=== PATIENT | male | born 1960 | race Caucasian/White ===

== ENCOUNTER 2018-05-06 17:17 | Inpatient (IN) | payer SELFPAY ==
[~2018-05-06] VITALS: Ht 182.9 cm; Wt 111.2 kg
[2018-05-06] MEDS ORDERED: hydrALAzine 20 MG/ML, 1ML ONE (17:47)
[2018-05-06] MEDS ORDERED: hydrALAzine 20 MG/ML, 1ML IV ONE (18:00)
[2018-05-06] MEDS ORDERED: SODIUM CHLORIDE FLUSH 10ML SYR IVF ONE (18:00)
[2018-05-06 18:11] LABS: BASOPHILS # (AUTO) 0.04 x10^3/uL (0-0.1); BASOPHILS % (AUTO) 1 % (0-1); EOSINOPHILS # (AUTO) 0.09 x10^3/uL (0-0.4); EOSINOPHILS % (AUTO) 1 % (1-7); LYMPHOCYTES # (AUTO) 1.19 x10^3/uL (1-3.4); LYMPHOCYTES % (AUTO) 18 % (22-44); MD NO; MEAN CORPUSCULAR HEMOGLOBIN 31.5 pg (27.5-34.5); MEAN CORPUSCULAR HGB CONC 34.6 g/dL (33.2-36.2); MEAN CORPUSCULAR VOLUME 91.2 fL (81-97); MEAN PLATELET VOLUME 7.6 fL (7.4-10.4); MONOCYTES # (AUTO) 0.61 x10^3/uL (0.2-0.8); MONOCYTES % (AUTO) 9 % (2-9); NEUTROPHILS # (AUTO) 4.71 x10^3/uL (1.8-6.8); NEUTROPHILS % (AUTO) 71 % (42-75); PLATELET COUNT 249 x10^3/uL (130-400); RED BLOOD COUNT 5.29 x10^6/uL (4.38-5.82); RED CELL DISTRIBUTION WIDTH 12.8 % (9.4-14.8)
[2018-05-06 18:20] LABS: ALANINE AMINOTRANSFERASE 79 U/L (12-78); ALBUMIN 4.2 g/dL (3.4-5.0); ANION GAP 8 mmol/L (5-15); CALCIUM 9.1 mg/dL (8.5-10.1); CHLORIDE 103 mmol/L (98-107); CREATININE 0.99 mg/dL (0.7-1.3)
[2018-05-06 18:25] LABS: ALKALINE PHOSPHATASE 82 U/L (45-117); BILIRUBIN,TOTAL 0.5 mg/dL (0.2-1.0); TOTAL PROTEIN 8.2 g/dL (6.4-8.2); TROPONIN I < 0.015 ng/mL (0.000-0.045)
--- NOTE | 2018-05-06 18:45 | NUR ---
PT'S BLOOD PRESSURE STILL ELEVATED. DR. LEARY NOTIFIED
--- NOTE | 2018-05-06 19:10 | NUR ---
PT MEDICATED PER EMAR
--- NOTE | 2018-05-06 19:53 | NUR ---
[facility] STATED TO CALL THEM TO [facility] PT WHEN HE IS DISCHARGED. CASE # [id number]
[2018-05-06] MEDS ORDERED: SODIUM CHLORIDE FLUSH 10ML SYR IVF PRN (20:00)
--- NOTE | 2018-05-06 20:34 | NUR ---
report given to serenity foreman
--- NOTE | 2018-05-06 20:53 | NUR ---
RECEIVED REPORT FROM ASPEN BASSETT
--- NOTE | 2018-05-06 21:20 | NUR ---
PT REPORTING FORD 09/23, STILL HTN. UPDATED, ORDERS RECEIVED. PHARM CALLED FOR MEDS. WILL CONTINUE TO MONITOR. PT LUL [phone], UPDATED ON PT STATUS WITH PT PERMISSION. WILL CONTINUE TO MONITOR
--- NOTE | 2018-05-06 21:29 | NUR ---
HOSPITALIST TO BEDSIDE FOR ASSESSMENT AND ADMIT
[2018-05-06] MEDS ORDERED: hydrALAzine 20 MG/ML, 1ML IVPush PRN (21:30)
[2018-05-06] MEDS ORDERED: ASA/APAP/ CAFFEINE TABLET PO PRN (21:30)
[2018-05-06] MEDS ORDERED: ONDANSETRON ODT 4 MG PO PRN (21:30)
[2018-05-06] MEDS ORDERED: HYDROcodone/APAP 5/325 TABLET PO PRN (21:30)
[2018-05-06] MEDS ORDERED: POLYETHYLENE GLYCOL 17 GM PACKET PO PRN (21:30)
[2018-05-06] MEDS ORDERED: BISACODYL 10 MG SUPP PR PRN (21:30)
[2018-05-06] MEDS ORDERED: PROMETHAZINE 25 MG/ML, 1ML IM PRN (21:30)
[2018-05-06] MEDS ORDERED: ONDANSETRON 2MG/ML, 2ML IVPush PRN (21:30)
[2018-05-06] MEDS ORDERED: morphine SULFATE 10 MG/ML, 1ML IVPush PRN (21:30)
[2018-05-06] MEDS ORDERED: LABETALOL 5MG/ML, 20ML IVPush ONE (21:30)
--- NOTE | 2018-05-06 21:43 | NUR ---
PT MEDICATED PER MAR FOR HTN AND FORD PAIN. PT NOW READY FOR TRANSPORT TO FLOOR
[2018-05-06 21:55] VITALS: BP 202/110
[2018-05-06 22:16] LABS: HEMOGLOBIN A1C 5.4 % (4.2-6.3)
[2018-05-06 22:17] LABS: FREE T4 (FREE THYROXINE) 0.89 ng/dL (0.76-1.46); THYROID STIMULATING HORMONE 1.55 mIU/L (0.358-3.740)
[2018-05-06] MEDS: LISINOPRIL 20 MG TABLET PO SCH (22:39)
[2018-05-06] MEDS: HYDROCHLOROTHIAZIDE 12.5 MG CAPSULE PO SCH (22:39)
[2018-05-06 22:53] LABS: MICROSCOPIC NOT IND
[2018-05-06 22:55] LABS: CULTURE INDICATED? NO
[2018-05-06 23:50] VITALS: BP 195/104
[2018-05-06] MEDS: ENALAPRILAT 1.25 MG/ML, 2ML IVPush PRN (23:54)
[2018-05-07] VITALS (11 sets, daily range): BP systolic 146–212; BP diastolic 89–116
[2018-05-07] MEDS: ENALAPRILAT 1.25 MG/ML, 2ML IVPush PRN ×2 (00:18→16:41)
[2018-05-07 05:21] LABS: BASOPHILS # (AUTO) 0.03 x10^3/uL (0-0.1); BASOPHILS % (AUTO) 0 % (0-1); EOSINOPHILS # (AUTO) 0.12 x10^3/uL (0-0.4); EOSINOPHILS % (AUTO) 2 % (1-7); LYMPHOCYTES # (AUTO) 1.66 x10^3/uL (1-3.4); LYMPHOCYTES % (AUTO) 23 % (22-44); MD NO; MEAN CORPUSCULAR HEMOGLOBIN 31.2 pg (27.5-34.5); MEAN CORPUSCULAR HGB CONC 34.4 g/dL (33.2-36.2); MEAN CORPUSCULAR VOLUME 90.8 fL (81-97); MEAN PLATELET VOLUME 7.6 fL (7.4-10.4); MONOCYTES # (AUTO) 0.89 x10^3/uL (0.2-0.8); MONOCYTES % (AUTO) 13 % (2-9); NEUTROPHILS # (AUTO) 4.44 x10^3/uL (1.8-6.8); NEUTROPHILS % (AUTO) 62 % (42-75); PLATELET COUNT 236 x10^3/uL (130-400); RED BLOOD COUNT 5.13 x10^6/uL (4.38-5.82); RED CELL DISTRIBUTION WIDTH 12.6 % (9.4-14.8)
[2018-05-07 05:29] LABS: ALBUMIN 3.9 g/dL (3.4-5.0); CALCIUM 8.8 mg/dL (8.5-10.1); CHLORIDE 108 mmol/L (98-107)
[2018-05-07 05:33] LABS: ALANINE AMINOTRANSFERASE 65 U/L (12-78); ALKALINE PHOSPHATASE 67 U/L (45-117); ANION GAP 7 mmol/L (5-15); BILIRUBIN,TOTAL 0.9 mg/dL (0.2-1.0); CHOL/HDL RATIO 3.9; CHOLESTEROL, TOTAL 145 mg/dL (140-239); HDL CHOL % 26 % (26-37); HDL CHOLESTEROL (DIRECT) 37 mg/dL (40-60); LDL CHOLESTEROL,CALCULATED 77 mg/dL (54-169); LDL/HDL RATIO 2.1 (0.5-3.0); TOTAL PROTEIN 7.6 g/dL (6.4-8.2); TRIGLYCERIDES 153 mg/dL (50-200); VLDL CHOLESTEROL 31 mg/dL (0-25)
[2018-05-07] MEDS: HYDROCHLOROTHIAZIDE 12.5 MG CAPSULE PO SCH (07:53)
[2018-05-07] MEDS: ACETAMINOPHEN 325 MG TABLET PO PRN ×2 (07:53→19:49)
[2018-05-07] MEDS: LISINOPRIL 20 MG TABLET PO SCH (07:54)
[2018-05-07] MEDS: LABETALOL 5 MG/ML SYRINGE IVPush PRN (19:42)
[2018-05-08 00:54] VITALS: BP 163/88
[2018-05-08 07:05] VITALS: BP 212/112
[2018-05-08] MEDS: LISINOPRIL 20 MG TABLET PO SCH (07:53)
[2018-05-08] MEDS: HYDROCHLOROTHIAZIDE 12.5 MG CAPSULE PO SCH (07:53)
[2018-05-08] MEDS: ACETAMINOPHEN 325 MG TABLET PO PRN (07:57)
[2018-05-08] MEDS ORDERED: LISINOPRIL 20 MG TABLET ONE (09:10)
[2018-05-08] MEDS ORDERED: LISINOPRIL 20 MG TABLET PO ONE (09:30)
[2018-05-08] MEDS: AMLODIPINE 5 MG TABLET PO SCH (09:58)
[2018-05-08 12:04] VITALS: BP 225/99
[2018-05-08 13:11] VITALS: BP 217/99
[2018-05-08] MEDS ORDERED: KETOROLAC 30 MG/1 ML IVPush SCH (13:30)
[2018-05-08] MEDS ORDERED: METOCLOPRAMIDE 5 MG/ML, 2ML IVPush ONE (13:30)
[2018-05-08] MEDS ORDERED: DIPHENHYDRAMINE 50 MG/ML, 1ML IVPush ONE (13:30)
[2018-05-08] MEDS: ENALAPRILAT 1.25 MG/ML, 2ML IVPush PRN ×2 (13:31→21:04)
[2018-05-08 15:29] VITALS: BP 160/87
[2018-05-08 21:02] VITALS: BP 174/95
[2018-05-09 02:38] VITALS: BP 157/80
[2018-05-09 07:40] VITALS: BP 206/127
[2018-05-09] MEDS: HYDROCHLOROTHIAZIDE 12.5 MG CAPSULE PO SCH (08:48)
[2018-05-09] MEDS: LISINOPRIL 20 MG TABLET PO SCH (08:49)
[2018-05-09] MEDS: AMLODIPINE 5 MG TABLET PO SCH (08:49)
[2018-05-09] MEDS ORDERED: AMLODIPINE 5 MG TABLET PO STA (09:21)
[2018-05-09 13:38] VITALS: BP 208/93
[2018-05-09] MEDS: ACETAMINOPHEN 325 MG TABLET PO PRN (13:56)
[2018-05-09] MEDS: ENALAPRILAT 1.25 MG/ML, 2ML IVPush PRN (14:08)
[2018-05-09] MEDS: LABETALOL 5 MG/ML SYRINGE IVPush PRN (16:01)
[2018-05-09 18:24] VITALS: BP 211/105
[2018-05-09 20:07] VITALS: BP 209/112
[2018-05-09] MEDS: AMLODIPINE 10 MG TAB PO SCH (20:10)
[2018-05-09 21:10] VITALS: BP 168/98
[2018-05-10] VITALS (7 sets, daily range): BP systolic 148–208; BP diastolic 65–158
[2018-05-10] MEDS ORDERED: AMLODIPINE 10 MG TAB PO SCH (09:00)
[2018-05-10] MEDS: AMLODIPINE 10 MG TAB PO SCH ×2 (09:00→21:16)
[2018-05-10] MEDS: LISINOPRIL 20 MG TABLET PO SCH (09:01)
[2018-05-10] MEDS: HYDROCHLOROTHIAZIDE 25 MG TABLET PO SCH (09:07)
[2018-05-10] MEDS: ACETAMINOPHEN 325 MG TABLET PO PRN (10:49)
[2018-05-10] MEDS: ENALAPRILAT 1.25 MG/ML, 2ML IVPush PRN (15:55)
[2018-05-10] MEDS ORDERED: CARVEDILOL 6.25 MG TABLET PO ONE (16:56)
[2018-05-10] MEDS ORDERED: CARVEDILOL 6.25 MG TABLET PO SCH (18:00)
[2018-05-10] MEDS: CARVEDILOL 12.5 MG TABLET PO SCH (18:26)
[2018-05-11 01:26] VITALS: BP 146/56
[2018-05-11 06:05] VITALS: BP 166/97
[2018-05-11] MEDS: CARVEDILOL 12.5 MG TABLET PO SCH ×2 (06:10→17:22)
[2018-05-11] MEDS: ACETAMINOPHEN 325 MG TABLET PO PRN ×2 (07:47→14:03)
[2018-05-11] MEDS: HYDROCHLOROTHIAZIDE 25 MG TABLET PO SCH (07:47)
[2018-05-11] MEDS: AMLODIPINE 10 MG TAB PO SCH ×2 (07:47→20:32)
[2018-05-11] MEDS: LISINOPRIL 20 MG TABLET PO SCH (07:48)
[2018-05-11 07:58] VITALS: BP 182/95
[2018-05-11 12:38] VITALS: BP 190/104
[2018-05-11] MEDS: ENALAPRILAT 1.25 MG/ML, 2ML IVPush PRN (14:04)
[2018-05-11 14:33] VITALS: BP 160/92
[2018-05-11 19:18] VITALS: BP 130/83
[2018-05-12] VITALS (14 sets, daily range): BP systolic 122–198; BP diastolic 69–127
[2018-05-12] MEDS: CARVEDILOL 12.5 MG TABLET PO SCH ×2 (05:52→17:46)
[2018-05-12] MEDS: ENALAPRILAT 1.25 MG/ML, 2ML IVPush PRN ×3 (06:03→18:23)
[2018-05-12] MEDS: HYDROCHLOROTHIAZIDE 25 MG TABLET PO SCH (08:19)
[2018-05-12] MEDS: LISINOPRIL 20 MG TABLET PO SCH (08:19)
[2018-05-12] MEDS: AMLODIPINE 10 MG TAB PO SCH (08:19)
[2018-05-12] MEDS: ACETAMINOPHEN 325 MG TABLET PO PRN ×2 (11:06→23:40)
[2018-05-12] MEDS: CHLORTHALIDONE 25 MG TABLET PO SCH (11:44)
[2018-05-12] MEDS: LABETALOL 5 MG/ML SYRINGE IVPush PRN ×2 (15:22→21:59)
[2018-05-12] MEDS: AMLODIPINE 5 MG TABLET PO SCH (19:55)
[2018-05-13] VITALS (8 sets, daily range): BP systolic 147–193; BP diastolic 75–108
[2018-05-13] MEDS: CARVEDILOL 25 MG TABLET PO SCH ×2 (05:17→18:01)
[2018-05-13] MEDS: FUROSEMIDE 20 MG/2 ML IV SCH ×2 (08:26→16:22)
[2018-05-13] MEDS: LISINOPRIL 20 MG TABLET PO SCH (08:28)
[2018-05-13] MEDS: CHLORTHALIDONE 25 MG TABLET PO SCH (08:28)
[2018-05-13] MEDS: AMLODIPINE 5 MG TABLET PO SCH ×2 (08:28→20:13)
[2018-05-13] MEDS ORDERED: DOXAZOSIN 2MG TABLET ONE (12:08)
[2018-05-13] MEDS: DOXAZOSIN 2MG TABLET PO SCH (12:20)
[2018-05-13] MEDS: ACETAMINOPHEN 325 MG TABLET PO PRN ×2 (13:03→20:13)
[2018-05-13 13:18] LABS: BASOPHILS # (AUTO) 0.06 x10^3/uL (0-0.1); BASOPHILS % (AUTO) 1 % (0-1); EOSINOPHILS # (AUTO) 0.35 x10^3/uL (0-0.4); EOSINOPHILS % (AUTO) 5 % (1-7); LYMPHOCYTES # (AUTO) 1.93 x10^3/uL (1-3.4); LYMPHOCYTES % (AUTO) 28 % (22-44); MD NO; MEAN CORPUSCULAR HEMOGLOBIN 31.7 pg (27.5-34.5); MEAN CORPUSCULAR HGB CONC 34.6 g/dL (33.2-36.2); MEAN CORPUSCULAR VOLUME 91.5 fL (81-97); MEAN PLATELET VOLUME 7.4 fL (7.4-10.4); MONOCYTES # (AUTO) 0.46 x10^3/uL (0.2-0.8); MONOCYTES % (AUTO) 7 % (2-9); NEUTROPHILS # (AUTO) 3.99 x10^3/uL (1.8-6.8); NEUTROPHILS % (AUTO) 59 % (42-75); PLATELET COUNT 273 x10^3/uL (130-400); RED BLOOD COUNT 5.29 x10^6/uL (4.38-5.82); RED CELL DISTRIBUTION WIDTH 12.9 % (9.4-14.8)
[2018-05-13 13:32] LABS: ALANINE AMINOTRANSFERASE 65 U/L (12-78); ALBUMIN 4.3 g/dL (3.4-5.0); ANION GAP 7 mmol/L (5-15); CALCIUM 9.2 mg/dL (8.5-10.1); CHLORIDE 104 mmol/L (98-107); CREATININE 0.98 mg/dL (0.7-1.3)
[2018-05-13 13:34] LABS: ALKALINE PHOSPHATASE 75 U/L (45-117); BILIRUBIN,TOTAL 0.7 mg/dL (0.2-1.0)
[2018-05-14] VITALS (12 sets, daily range): BP systolic 155–199; BP diastolic 82–104
[2018-05-14 05:07] LABS: BASOPHILS # (AUTO) 0.04 x10^3/uL (0-0.1); BASOPHILS % (AUTO) 1 % (0-1); EOSINOPHILS # (AUTO) 0.35 x10^3/uL (0-0.4); EOSINOPHILS % (AUTO) 5 % (1-7); LYMPHOCYTES # (AUTO) 2.13 x10^3/uL (1-3.4); LYMPHOCYTES % (AUTO) 30 % (22-44); MD NO; MEAN CORPUSCULAR HEMOGLOBIN 31.1 pg (27.5-34.5); MEAN CORPUSCULAR VOLUME 91.4 fL (81-97); MEAN PLATELET VOLUME 7.6 fL (7.4-10.4); MONOCYTES % (AUTO) 15 % (2-9); NEUTROPHILS # (AUTO) 3.51 x10^3/uL (1.8-6.8); NEUTROPHILS % (AUTO) 49 % (42-75); PLATELET COUNT 220 x10^3/uL (130-400); RED BLOOD COUNT 4.75 x10^6/uL (4.38-5.82); RED CELL DISTRIBUTION WIDTH 12.7 % (9.4-14.8)
[2018-05-14 05:15] LABS: ALBUMIN 3.6 g/dL (3.4-5.0); ANION GAP 6 mmol/L (5-15); CALCIUM 8.5 mg/dL (8.5-10.1); CHLORIDE 107 mmol/L (98-107)
[2018-05-14 05:16] LABS: CREATININE 0.93 mg/dL (0.7-1.3)
[2018-05-14] MEDS: CARVEDILOL 25 MG TABLET PO SCH ×2 (05:41→17:28)
[2018-05-14] MEDS: FUROSEMIDE 20 MG/2 ML IV SCH (07:29)
[2018-05-14] MEDS: LISINOPRIL 20 MG TABLET PO SCH (07:29)
[2018-05-14] MEDS: DOXAZOSIN 2MG TABLET PO SCH (07:29)
[2018-05-14] MEDS: CHLORTHALIDONE 25 MG TABLET PO SCH (07:29)
[2018-05-14] MEDS: AMLODIPINE 5 MG TABLET PO SCH ×2 (09:14→21:32)
[2018-05-14] MEDS: cloniDINE 0.1MG PATCH TD SCH (10:35)
[2018-05-14] MEDS: ACETAMINOPHEN 325 MG TABLET PO PRN (10:35)
[2018-05-14] MEDS: ENALAPRILAT 1.25 MG/ML, 2ML IVPush PRN ×3 (11:39→18:15)
[2018-05-14] MEDS: SPIRONOLACTONE 25 MG TABLET PO SCH (13:05)
[2018-05-14 16:47] LABS: MICROSCOPIC NOT IND
[2018-05-15] VITALS (11 sets, daily range): BP systolic 129–182; BP diastolic 77–105
[2018-05-15] MEDS: CARVEDILOL 25 MG TABLET PO SCH ×2 (05:06→17:25)
[2018-05-15] MEDS: ACETAMINOPHEN 325 MG TABLET PO PRN ×2 (09:44→14:53)
[2018-05-15] MEDS: LISINOPRIL 20 MG TABLET PO SCH (09:45)
[2018-05-15] MEDS: CHLORTHALIDONE 25 MG TABLET PO SCH (09:46)
[2018-05-15] MEDS: SPIRONOLACTONE 25 MG TABLET PO SCH (09:49)
[2018-05-15] MEDS: AMLODIPINE 5 MG TABLET PO SCH (09:49)
[2018-05-15] MEDS: LABETALOL 5 MG/ML SYRINGE IVPush PRN (11:18)
[2018-05-15] MEDS: ENALAPRILAT 1.25 MG/ML, 2ML IVPush PRN (12:41)
[2018-05-15] MEDS: niFEDipine ER 60 MG TABLET.ER PO SCH (20:47)
[2018-05-16] VITALS (7 sets, daily range): BP systolic 113–169; BP diastolic 70–110
[2018-05-16 04:19] LABS: ALBUMIN 3.4 g/dL (3.4-5.0); ANION GAP 5 mmol/L (5-15); CALCIUM 8.6 mg/dL (8.5-10.1); CHLORIDE 108 mmol/L (98-107); CREATININE 0.95 mg/dL (0.7-1.3)
[2018-05-16] MEDS: ACETAMINOPHEN 325 MG TABLET PO PRN ×3 (06:07→17:23)
[2018-05-16] MEDS: CARVEDILOL 25 MG TABLET PO SCH ×2 (06:07→17:24)
[2018-05-16] MEDS: niFEDipine ER 60 MG TABLET.ER PO SCH ×2 (08:55→20:11)
[2018-05-16] MEDS: LISINOPRIL 20 MG TABLET PO SCH (08:55)
[2018-05-16] MEDS: SPIRONOLACTONE 25 MG TABLET PO SCH (08:55)
[2018-05-16] MEDS: CHLORTHALIDONE 25 MG TABLET PO SCH (08:56)
[2018-05-16] MEDS ORDERED: LABETALOL 5 MG/ML SYRINGE IVPush PRN (13:30)
[2018-05-16] MEDS ORDERED: hydrALAzine 20 MG/ML, 1ML IVPush PRN (13:30)
[2018-05-16] MEDS ORDERED: ENALAPRILAT 1.25 MG/ML, 2ML IVPush PRN (15:30)
[2018-05-17] VITALS (7 sets, daily range): BP systolic 152–181; BP diastolic 69–112
[2018-05-17] MEDS: CARVEDILOL 25 MG TABLET PO SCH ×2 (05:25→17:43)
[2018-05-17 05:38] LABS: ALBUMIN 3.6 g/dL (3.4-5.0); ANION GAP 4 mmol/L (5-15); CALCIUM 8.7 mg/dL (8.5-10.1); CHLORIDE 108 mmol/L (98-107); CREATININE 0.89 mg/dL (0.7-1.3)
[2018-05-17] MEDS: LISINOPRIL 20 MG TABLET PO SCH (08:47)
[2018-05-17] MEDS: ACETAMINOPHEN 325 MG TABLET PO PRN ×3 (08:47→20:04)
[2018-05-17] MEDS: niFEDipine ER 60 MG TABLET.ER PO SCH ×2 (08:47→19:56)
[2018-05-17] MEDS: CHLORTHALIDONE 25 MG TABLET PO SCH (08:47)
[2018-05-17] MEDS: SPIRONOLACTONE 50 MG TABLET PO SCH (08:47)
[2018-05-18] VITALS (8 sets, daily range): BP systolic 148–193; BP diastolic 81–117
[2018-05-18 05:11] LABS: BASOPHILS # (AUTO) 0.03 x10^3/uL (0-0.1); BASOPHILS % (AUTO) 1 % (0-1); EOSINOPHILS # (AUTO) 0.37 x10^3/uL (0-0.4); EOSINOPHILS % (AUTO) 6 % (1-7); LYMPHOCYTES # (AUTO) 1.87 x10^3/uL (1-3.4); LYMPHOCYTES % (AUTO) 28 % (22-44); MD NO; MEAN CORPUSCULAR HEMOGLOBIN 31.7 pg (27.5-34.5); MEAN CORPUSCULAR HGB CONC 35.1 g/dL (33.2-36.2); MEAN CORPUSCULAR VOLUME 90.4 fL (81-97); MEAN PLATELET VOLUME 7.2 fL (7.4-10.4); MONOCYTES # (AUTO) 0.76 x10^3/uL (0.2-0.8); MONOCYTES % (AUTO) 12 % (2-9); NEUTROPHILS # (AUTO) 3.61 x10^3/uL (1.8-6.8); NEUTROPHILS % (AUTO) 54 % (42-75); PLATELET COUNT 227 x10^3/uL (130-400); RED BLOOD COUNT 4.63 x10^6/uL (4.38-5.82); RED CELL DISTRIBUTION WIDTH 12.5 % (9.4-14.8)
[2018-05-18] MEDS: CARVEDILOL 25 MG TABLET PO SCH ×2 (05:15→18:09)
[2018-05-18 05:20] LABS: ALBUMIN 3.5 g/dL (3.4-5.0); ANION GAP 5 mmol/L (5-15); CALCIUM 8.5 mg/dL (8.5-10.1); CHLORIDE 109 mmol/L (98-107); CREATININE 0.86 mg/dL (0.7-1.3)
[2018-05-18] MEDS: ACETAMINOPHEN 325 MG TABLET PO PRN ×3 (05:23→18:12)
[2018-05-18] MEDS: LISINOPRIL 20 MG TABLET PO SCH (08:04)
[2018-05-18] MEDS: niFEDipine ER 60 MG TABLET.ER PO SCH ×2 (08:04→20:34)
[2018-05-18] MEDS: CHLORTHALIDONE 25 MG TABLET PO SCH (08:05)
[2018-05-18] MEDS: SPIRONOLACTONE 50 MG TABLET PO SCH (08:05)
[2018-05-19] VITALS (7 sets, daily range): BP systolic 126–179; BP diastolic 80–98
[2018-05-19] MEDS: CARVEDILOL 25 MG TABLET PO SCH ×2 (05:19→17:25)
[2018-05-19] MEDS: ACETAMINOPHEN 325 MG TABLET PO PRN ×3 (05:19→17:25)
[2018-05-19] MEDS: CHLORTHALIDONE 25 MG TABLET PO SCH (08:28)
[2018-05-19] MEDS: niFEDipine ER 60 MG TABLET.ER PO SCH ×2 (08:28→20:22)
[2018-05-19] MEDS: SPIRONOLACTONE 50 MG TABLET PO SCH (08:28)
[2018-05-19] MEDS: LISINOPRIL 20 MG TABLET PO SCH (08:29)
[2018-05-19] MEDS: IBUPROFEN 200 MG TABLET PO PRN (20:21)
[2018-05-20] VITALS (8 sets, daily range): BP systolic 91–151; BP diastolic 56–84
[2018-05-20] MEDS: ACETAMINOPHEN 325 MG TABLET PO PRN (00:57)
[2018-05-20] MEDS: CARVEDILOL 25 MG TABLET PO SCH ×2 (05:34→17:51)
[2018-05-20] MEDS: IBUPROFEN 200 MG TABLET PO PRN (05:34)
[2018-05-20] MEDS: niFEDipine ER 60 MG TABLET.ER PO SCH ×2 (09:00→21:13)
[2018-05-20] MEDS: SPIRONOLACTONE 50 MG TABLET PO SCH ×2 (10:24→14:19)
[2018-05-20] MEDS: LISINOPRIL 20 MG TABLET PO SCH ×2 (10:24→14:19)
[2018-05-20] MEDS: CHLORTHALIDONE 25 MG TABLET PO SCH (10:24)
[2018-05-20 10:47] LABS: BASOPHILS # (AUTO) 0.03 x10^3/uL (0-0.1); BASOPHILS % (AUTO) 0 % (0-1); EOSINOPHILS # (AUTO) 0.08 x10^3/uL (0-0.4); EOSINOPHILS % (AUTO) 1 % (1-7); LYMPHOCYTES % (AUTO) 11 % (22-44); MD NO; MEAN CORPUSCULAR HEMOGLOBIN 31.5 pg (27.5-34.5); MEAN CORPUSCULAR HGB CONC 34.5 g/dL (33.2-36.2); MEAN CORPUSCULAR VOLUME 91.3 fL (81-97); MEAN PLATELET VOLUME 7.4 fL (7.4-10.4); MONOCYTES % (AUTO) 9 % (2-9); NEUTROPHILS # (AUTO) 8.69 x10^3/uL (1.8-6.8); NEUTROPHILS % (AUTO) 79 % (42-75); PLATELET COUNT 210 x10^3/uL (130-400); RED BLOOD COUNT 4.93 x10^6/uL (4.38-5.82); RED CELL DISTRIBUTION WIDTH 12.7 % (9.4-14.8)
[2018-05-20 10:50] LABS: HEMOGRAM NOTE RECHECKED
[2018-05-20 10:53] LABS: ANION GAP 9 mmol/L (5-15); CALCIUM 8.8 mg/dL (8.5-10.1); CHLORIDE 106 mmol/L (98-107); CREATININE 1.73 mg/dL (0.7-1.3)
[2018-05-20] MEDS: AMOXICILLIN/CLAV 875-125MG TABLET PO SCH ×2 (12:43→21:13)
[2018-05-20] MEDS: HEPARIN 5,000 UNITS/ML, 1ML SQ SCH ×2 (12:44→21:13)
[2018-05-20 13:31] LABS: RAPID INFLUENZA A Negative (Negative); RAPID INFLUENZA B Negative (Negative)
[2018-05-20 17:19] LABS: MICROSCOPIC INDICATED
[2018-05-20 17:32] LABS: CULTURE INDICATED? YES
[2018-05-21] VITALS (8 sets, daily range): BP systolic 120–144; BP diastolic 71–84
[2018-05-21] MEDS: CARVEDILOL 25 MG TABLET PO SCH (05:38)
[2018-05-21] MEDS: HEPARIN 5,000 UNITS/ML, 1ML SQ SCH ×3 (05:38→21:50)
[2018-05-21 05:53] LABS: BASOPHILS # (AUTO) 0.02 x10^3/uL (0-0.1); BASOPHILS % (AUTO) 0 % (0-1); EOSINOPHILS # (AUTO) 0.04 x10^3/uL (0-0.4); EOSINOPHILS % (AUTO) 0 % (1-7); LYMPHOCYTES # (AUTO) 1.24 x10^3/uL (1-3.4); LYMPHOCYTES % (AUTO) 12 % (22-44); MD NO; MEAN CORPUSCULAR HEMOGLOBIN 31.5 pg (27.5-34.5); MEAN CORPUSCULAR HGB CONC 34.6 g/dL (33.2-36.2); MEAN CORPUSCULAR VOLUME 91.1 fL (81-97); MEAN PLATELET VOLUME 7.4 fL (7.4-10.4); MONOCYTES # (AUTO) 1.35 x10^3/uL (0.2-0.8); MONOCYTES % (AUTO) 13 % (2-9); NEUTROPHILS # (AUTO) 7.46 x10^3/uL (1.8-6.8); NEUTROPHILS % (AUTO) 74 % (42-75); PLATELET COUNT 193 x10^3/uL (130-400); RED BLOOD COUNT 4.58 x10^6/uL (4.38-5.82); RED CELL DISTRIBUTION WIDTH 12.7 % (9.4-14.8)
[2018-05-21] MEDS: niFEDipine ER 60 MG TABLET.ER PO SCH (09:00)
[2018-05-21] MEDS: CHLORTHALIDONE 25 MG TABLET PO SCH (09:00)
[2018-05-21] MEDS: cloniDINE 0.1MG PATCH TD SCH (10:00)
[2018-05-21 10:09] LABS: ALBUMIN 3.3 g/dL (3.4-5.0); ANION GAP 8 mmol/L (5-15); CALCIUM 8.4 mg/dL (8.5-10.1); CHLORIDE 105 mmol/L (98-107); CREATININE 1.28 mg/dL (0.7-1.3)
[2018-05-21] MEDS: AMOXICILLIN/CLAV 875-125MG TABLET PO SCH ×2 (10:10→21:50)
[2018-05-21] MEDS ORDERED: CHLORTHALIDONE 25 MG TABLET PO ONE (11:30)
[2018-05-21] MEDS: SODIUM CHLORIDE FLUSH 10ML SYR IVF SCH (21:50)
[2018-05-22] VITALS: BP 131/76
[2018-05-22 04:00] VITALS: BP 119/71
[2018-05-22] MEDS: HEPARIN 5,000 UNITS/ML, 1ML SQ SCH ×3 (04:39→22:16)
[2018-05-22 05:18] LABS: MEAN CORPUSCULAR HEMOGLOBIN 31.3 pg (27.5-34.5); MEAN CORPUSCULAR HGB CONC 34.7 g/dL (33.2-36.2); MEAN CORPUSCULAR VOLUME 90.2 fL (81-97); MEAN PLATELET VOLUME 7.8 fL (7.4-10.4); PLATELET COUNT 199 x10^3/uL (130-400); RED BLOOD COUNT 4.54 x10^6/uL (4.38-5.82); RED CELL DISTRIBUTION WIDTH 12.6 % (9.4-14.8)
[2018-05-22 05:30] LABS: ANION GAP 7 mmol/L (5-15); CALCIUM 8.5 mg/dL (8.5-10.1); CHLORIDE 105 mmol/L (98-107)
[2018-05-22 05:31] LABS: CREATININE 0.89 mg/dL (0.7-1.3)
[2018-05-22 06:17] LABS: BASOPHILS # (AUTO) 0.03 x10^3/uL (0-0.1); BASOPHILS % (AUTO) 0 % (0-1); EOSINOPHILS # (AUTO) 0.21 x10^3/uL (0-0.4); EOSINOPHILS % (AUTO) 3 % (1-7); LYMPHOCYTES % (AUTO) 24 % (22-44); MD SCAN; MONOCYTES # (AUTO) 1.64 x10^3/uL (0.2-0.8); MONOCYTES % (AUTO) 20 % (2-9); NEUTROPHILS # (AUTO) 4.43 x10^3/uL (1.8-6.8); NEUTROPHILS % (AUTO) 53 % (42-75)
[2018-05-22 07:25] VITALS: BP 144/79
[2018-05-22] MEDS: CHLORTHALIDONE 25 MG TABLET PO SCH (08:59)
[2018-05-22] MEDS: SODIUM CHLORIDE FLUSH 10ML SYR IVF SCH ×2 (09:00→22:16)
[2018-05-22] MEDS: ACETAMINOPHEN 325 MG TABLET PO PRN (09:00)
[2018-05-22 12:05] VITALS: BP 157/87
[2018-05-22] MEDS ORDERED: AMPICILLIN/SULBACTAM 1,500 MG in SODIUM CHLORIDE 0.9% 50 ML IV SCH (13:00)
[2018-05-22] MEDS ORDERED: PHARMACOKINETIC MONITORING MC PRN (13:30)
[2018-05-22] MEDS ORDERED: VANCOMYCIN PER PHARMACY MC PRN (15:00)
[2018-05-22 19:14] VITALS: BP 163/95
[2018-05-22] MEDS: VANCOMYCIN 2,200 MG in SODIUM CHLORIDE 0.9% 500 ML IV SCH (22:21)
[2018-05-23] MEDS: CEFTRIAXONE PMX 2GM/50ML 50 ML IV SCH (01:31)
[2018-05-23 01:55] VITALS: BP 132/73
[2018-05-23] MEDS: HEPARIN 5,000 UNITS/ML, 1ML SQ SCH ×3 (04:59→22:27)
[2018-05-23 06:52] VITALS: BP 135/86
[2018-05-23] MEDS: CHLORTHALIDONE 25 MG TABLET PO SCH (10:03)
[2018-05-23] MEDS: VANCOMYCIN 2,200 MG in SODIUM CHLORIDE 0.9% 500 ML IV SCH ×2 (10:04→22:26)
[2018-05-23] MEDS: SODIUM CHLORIDE FLUSH 10ML SYR IVF SCH ×2 (10:05→21:19)
[2018-05-23 13:30] VITALS: BP 170/92
[2018-05-23 20:19] VITALS: BP 132/84
[2018-05-24 00:49] VITALS: BP 135/81
[2018-05-24] MEDS: CEFTRIAXONE PMX 2GM/50ML 50 ML IV SCH (01:40)
[2018-05-24] MEDS: ACETAMINOPHEN 325 MG TABLET PO PRN ×2 (01:48→08:59)
[2018-05-24] MEDS: HEPARIN 5,000 UNITS/ML, 1ML SQ SCH ×3 (08:56→22:39)
[2018-05-24] MEDS: CHLORTHALIDONE 25 MG TABLET PO SCH (08:56)
[2018-05-24] MEDS: SODIUM CHLORIDE FLUSH 10ML SYR IVF SCH ×2 (08:56→21:15)
[2018-05-24 08:59] VITALS: BP 147/84
[2018-05-24] MEDS: VANCOMYCIN 2,200 MG in SODIUM CHLORIDE 0.9% 500 ML IV SCH (10:30)
[2018-05-24 12:19] VITALS: BP 153/98
[2018-05-24] MEDS ORDERED: CEFAZOLIN 2,000 MG in SODIUM CHLORIDE 0.9% 50 ML IV SCH (17:00)
[2018-05-24] MEDS ORDERED: CEFAZOLIN PMX 2GM/50ML 50 ML IVPB SCH (17:10)
[2018-05-24] MEDS: CEFAZOLIN 2,000 MG in SODIUM CHLORIDE 0.9% 50 ML IVPB SCH (17:44)
[2018-05-24 18:59] VITALS: BP 151/87
[2018-05-24] MEDS: DOCUSATE 100 MG CAPSULE PO PRN (22:39)
[2018-05-25] MEDS: CEFAZOLIN 2,000 MG in SODIUM CHLORIDE 0.9% 50 ML IVPB SCH ×3 (01:12→17:21)
[2018-05-25 02:31] VITALS: BP 118/72
[2018-05-25 05:18] LABS: BASOPHILS # (AUTO) 0.05 x10^3/uL (0-0.1); BASOPHILS % (AUTO) 1 % (0-1); EOSINOPHILS # (AUTO) 0.42 x10^3/uL (0-0.4); EOSINOPHILS % (AUTO) 5 % (1-7); LYMPHOCYTES # (AUTO) 2.42 x10^3/uL (1-3.4); LYMPHOCYTES % (AUTO) 26 % (22-44); MD NO; MEAN CORPUSCULAR HEMOGLOBIN 31.4 pg (27.5-34.5); MEAN CORPUSCULAR HGB CONC 34.8 g/dL (33.2-36.2); MEAN CORPUSCULAR VOLUME 90.2 fL (81-97); MEAN PLATELET VOLUME 7.6 fL (7.4-10.4); MONOCYTES # (AUTO) 1.19 x10^3/uL (0.2-0.8); MONOCYTES % (AUTO) 13 % (2-9); NEUTROPHILS # (AUTO) 5.16 x10^3/uL (1.8-6.8); NEUTROPHILS % (AUTO) 56 % (42-75); PLATELET COUNT 268 x10^3/uL (130-400); RED BLOOD COUNT 4.73 x10^6/uL (4.38-5.82); RED CELL DISTRIBUTION WIDTH 12.7 % (9.4-14.8)
[2018-05-25 05:28] LABS: CHLORIDE 103 mmol/L (98-107)
[2018-05-25 05:38] LABS: ALANINE AMINOTRANSFERASE 55 U/L (12-78); ALBUMIN 3.4 g/dL (3.4-5.0); ALKALINE PHOSPHATASE 59 U/L (45-117); ANION GAP 9 mmol/L (5-15); BILIRUBIN,TOTAL 0.3 mg/dL (0.2-1.0); CREATININE 1.05 mg/dL (0.7-1.3); TOTAL PROTEIN 7.7 g/dL (6.4-8.2)
[2018-05-25] MEDS: HEPARIN 5,000 UNITS/ML, 1ML SQ SCH ×3 (07:10→22:20)
[2018-05-25 07:54] VITALS: BP 108/71
[2018-05-25] MEDS: CHLORTHALIDONE 25 MG TABLET PO SCH (08:00)
[2018-05-25] MEDS: SODIUM CHLORIDE FLUSH 10ML SYR IVF SCH ×2 (08:00→22:21)
[2018-05-25] MEDS: DOCUSATE 100 MG CAPSULE PO PRN (11:14)
[2018-05-25 14:05] VITALS: BP 145/89
[2018-05-25] MEDS ORDERED: POTASSIUM CHLORIDE 20 MEQ TAB.ER.PRT PO ONE ×2 (18:00→20:00)
[2018-05-25 19:35] VITALS: BP 155/93
[2018-05-26] MEDS: CEFAZOLIN 2,000 MG in SODIUM CHLORIDE 0.9% 50 ML IVPB SCH ×3 (01:30→17:33)
[2018-05-26 02:17] VITALS: BP 131/76
[2018-05-26 05:37] LABS: CHLORIDE 104 mmol/L (98-107)
[2018-05-26 05:42] LABS: ANION GAP 7 mmol/L (5-15); CALCIUM 9.1 mg/dL (8.5-10.1); CREATININE 0.95 mg/dL (0.7-1.3)
[2018-05-26 08:05] VITALS: BP 123/78
[2018-05-26] MEDS: SODIUM CHLORIDE FLUSH 10ML SYR IVF SCH ×2 (09:00→22:59)
[2018-05-26] MEDS: CHLORTHALIDONE 25 MG TABLET PO SCH (09:42)
[2018-05-26 13:06] VITALS: BP 132/82
[2018-05-26 19:19] VITALS: BP 127/79
[2018-05-27 01:50] VITALS: BP 135/89
[2018-05-27] MEDS: CEFAZOLIN 2,000 MG in SODIUM CHLORIDE 0.9% 50 ML IVPB SCH ×3 (01:52→17:29)
[2018-05-27 08:13] VITALS: BP 124/80
[2018-05-27] MEDS: SODIUM CHLORIDE FLUSH 10ML SYR IVF SCH ×2 (09:00→23:20)
[2018-05-27] MEDS: CHLORTHALIDONE 25 MG TABLET PO SCH (09:21)
[2018-05-27] MEDS ORDERED: CHLO25TA PO (11:35)
[2018-05-27] MEDS ORDERED: ACET325T14 PO (11:35)
[2018-05-27 13:08] VITALS: BP 145/85
[2018-05-27 20:20] VITALS: BP 166/92
[2018-05-28] MEDS: CEFAZOLIN 2,000 MG in SODIUM CHLORIDE 0.9% 50 ML IVPB SCH ×3 (01:44→17:08)
[2018-05-28 01:45] VITALS: BP 143/81
[2018-05-28 07:14] VITALS: BP 139/87
[2018-05-28] MEDS: SODIUM CHLORIDE FLUSH 10ML SYR IVF SCH ×2 (09:30→21:05)
[2018-05-28] MEDS: CHLORTHALIDONE 25 MG TABLET PO SCH (09:30)
[2018-05-28] MEDS: ACETAMINOPHEN 325 MG TABLET PO PRN (13:17)
[2018-05-28 14:35] VITALS: BP 161/95
[2018-05-28 19:22] VITALS: BP 146/83
[2018-05-29 00:10] VITALS: BP 155/81
[2018-05-29] MEDS: CEFAZOLIN 2,000 MG in SODIUM CHLORIDE 0.9% 50 ML IVPB SCH ×3 (01:21→17:33)
[2018-05-29 07:28] VITALS: BP 123/78
[2018-05-29] MEDS: SODIUM CHLORIDE FLUSH 10ML SYR IVF SCH ×2 (09:15→20:29)
[2018-05-29] MEDS: CHLORTHALIDONE 25 MG TABLET PO SCH (09:18)
[2018-05-29 09:40] LABS: BASOPHILS # (AUTO) 0.17 x10^3/uL (0-0.1); BASOPHILS % (AUTO) 2 % (0-1); EOSINOPHILS # (AUTO) 0.26 x10^3/uL (0-0.4); EOSINOPHILS % (AUTO) 3 % (1-7); LYMPHOCYTES # (AUTO) 2.23 x10^3/uL (1-3.4); LYMPHOCYTES % (AUTO) 28 % (22-44); MD NO; MEAN CORPUSCULAR HGB CONC 34.4 g/dL (33.2-36.2); MEAN PLATELET VOLUME 7.6 fL (7.4-10.4); MONOCYTES # (AUTO) 0.91 x10^3/uL (0.2-0.8); MONOCYTES % (AUTO) 11 % (2-9); NEUTROPHILS # (AUTO) 4.41 x10^3/uL (1.8-6.8); NEUTROPHILS % (AUTO) 55 % (42-75); PLATELET COUNT 308 x10^3/uL (130-400); RED BLOOD COUNT 4.74 x10^6/uL (4.38-5.82); RED CELL DISTRIBUTION WIDTH 12.4 % (9.4-14.8)
[2018-05-29 09:43] LABS: HCT (SEDRATE) 42.7 % (39.2-51.8)
[2018-05-29 09:48] LABS: ALANINE AMINOTRANSFERASE 31 U/L (12-78); ALBUMIN 3.4 g/dL (3.4-5.0); ANION GAP 6 mmol/L (5-15); C-REACTIVE PROTEIN, QUANT 0.69 mg/dL (0.02-0.49); CALCIUM 8.9 mg/dL (8.5-10.1); CHLORIDE 102 mmol/L (98-107); CREATININE 0.97 mg/dL (0.7-1.3)
[2018-05-29 09:50] LABS: ALKALINE PHOSPHATASE 66 U/L (45-117); BILIRUBIN,TOTAL 0.5 mg/dL (0.2-1.0); TOTAL PROTEIN 7.4 g/dL (6.4-8.2)
[2018-05-29 14:13] VITALS: BP 137/87
[2018-05-29 18:30] VITALS: BP 143/81
[2018-05-30 00:10] VITALS: BP 132/81
[2018-05-30] MEDS: CEFAZOLIN 2,000 MG in SODIUM CHLORIDE 0.9% 50 ML IVPB SCH ×3 (01:18→17:50)
[2018-05-30 05:41] LABS: BASOPHILS # (AUTO) 0.08 x10^3/uL (0-0.1); BASOPHILS % (AUTO) 1 % (0-1); EOSINOPHILS # (AUTO) 0.34 x10^3/uL (0-0.4); EOSINOPHILS % (AUTO) 4 % (1-7); LYMPHOCYTES # (AUTO) 2.86 x10^3/uL (1-3.4); LYMPHOCYTES % (AUTO) 31 % (22-44); MD NO; MEAN CORPUSCULAR HEMOGLOBIN 31.6 pg (27.5-34.5); MEAN CORPUSCULAR HGB CONC 34.8 g/dL (33.2-36.2); MEAN CORPUSCULAR VOLUME 90.8 fL (81-97); MEAN PLATELET VOLUME 7.5 fL (7.4-10.4); MONOCYTES # (AUTO) 1.04 x10^3/uL (0.2-0.8); MONOCYTES % (AUTO) 11 % (2-9); NEUTROPHILS # (AUTO) 5.03 x10^3/uL (1.8-6.8); NEUTROPHILS % (AUTO) 54 % (42-75); PLATELET COUNT 315 x10^3/uL (130-400); RED BLOOD COUNT 4.65 x10^6/uL (4.38-5.82); RED CELL DISTRIBUTION WIDTH 12.6 % (9.4-14.8)
[2018-05-30 05:47] LABS: ANION GAP 7 mmol/L (5-15); CALCIUM 9.1 mg/dL (8.5-10.1); CHLORIDE 103 mmol/L (98-107); CREATININE 1.07 mg/dL (0.7-1.3)
[2018-05-30 07:34] VITALS: BP 146/92
[2018-05-30] MEDS: CHLORTHALIDONE 25 MG TABLET PO SCH (09:41)
[2018-05-30] MEDS: ENOXAPARIN 40 MG/0.4 ML SQ SCH (09:42)
[2018-05-30] MEDS: SODIUM CHLORIDE FLUSH 10ML SYR IVF SCH ×2 (09:43→21:46)
[2018-05-30 14:40] VITALS: BP 145/83
[2018-05-30 18:26] VITALS: BP 138/80
[2018-05-31 01:21] VITALS: BP 143/86
[2018-05-31] MEDS: CEFAZOLIN 2,000 MG in SODIUM CHLORIDE 0.9% 50 ML IVPB SCH ×3 (01:24→17:30)
[2018-05-31 06:03] LABS: CHLORIDE 103 mmol/L (98-107)
[2018-05-31 06:10] LABS: ANION GAP 6 mmol/L (5-15); CALCIUM 9.1 mg/dL (8.5-10.1); CREATININE 0.96 mg/dL (0.7-1.3)
[2018-05-31 07:16] VITALS: BP 144/88
[2018-05-31] MEDS ORDERED: POTASSIUM CHLORIDE 20 MEQ TAB.ER.PRT PO ONE (07:30)
[2018-05-31] MEDS: ENOXAPARIN 40 MG/0.4 ML SQ SCH (08:00)
[2018-05-31] MEDS: SODIUM CHLORIDE FLUSH 10ML SYR IVF SCH ×2 (09:17→20:52)
[2018-05-31] MEDS: CHLORTHALIDONE 25 MG TABLET PO SCH (09:17)
[2018-05-31 14:11] VITALS: BP 144/99
[2018-05-31 20:00] VITALS: BP 165/93
[2018-06-01] MEDS: CEFAZOLIN 2,000 MG in SODIUM CHLORIDE 0.9% 50 ML IVPB SCH ×3 (01:35→18:03)
[2018-06-01 01:37] VITALS: BP 156/92
[2018-06-01 05:14] LABS: HCT (SEDRATE) 42.1 % (39.2-51.8)
[2018-06-01 05:15] LABS: BASOPHILS % (AUTO) 1 % (0-1); EOSINOPHILS # (AUTO) 0.33 x10^3/uL (0-0.4); EOSINOPHILS % (AUTO) 4 % (1-7); LYMPHOCYTES # (AUTO) 2.55 x10^3/uL (1-3.4); LYMPHOCYTES % (AUTO) 29 % (22-44); MD NO; MEAN CORPUSCULAR HEMOGLOBIN 31.7 pg (27.5-34.5); MEAN CORPUSCULAR VOLUME 90.6 fL (81-97); MEAN PLATELET VOLUME 7.5 fL (7.4-10.4); MONOCYTES % (AUTO) 9 % (2-9); NEUTROPHILS # (AUTO) 4.89 x10^3/uL (1.8-6.8); NEUTROPHILS % (AUTO) 56 % (42-75); PLATELET COUNT 278 x10^3/uL (130-400); RED BLOOD COUNT 4.62 x10^6/uL (4.38-5.82); RED CELL DISTRIBUTION WIDTH 12.4 % (9.4-14.8)
[2018-06-01 05:26] LABS: ANION GAP 6 mmol/L (5-15); C-REACTIVE PROTEIN, QUANT 0.45 mg/dL (0.02-0.49); CHLORIDE 103 mmol/L (98-107); CREATININE 1.03 mg/dL (0.7-1.3)
[2018-06-01 07:29] VITALS: BP 133/98
[2018-06-01] MEDS: ENOXAPARIN 40 MG/0.4 ML SQ SCH (08:00)
[2018-06-01] MEDS: SODIUM CHLORIDE FLUSH 10ML SYR IVF SCH ×2 (09:00→21:18)
[2018-06-01] MEDS: CHLORTHALIDONE 25 MG TABLET PO SCH (09:16)
[2018-06-01 13:20] VITALS: BP 163/102
[2018-06-01 20:30] VITALS: BP 145/96
[2018-06-02] MEDS: CEFAZOLIN 2,000 MG in SODIUM CHLORIDE 0.9% 50 ML IVPB SCH ×3 (01:20→17:33)
[2018-06-02 01:37] VITALS: BP 119/69
[2018-06-02 07:26] VITALS: BP 140/89
[2018-06-02] MEDS: ENOXAPARIN 40 MG/0.4 ML SQ SCH (08:00)
[2018-06-02] MEDS: SODIUM CHLORIDE FLUSH 10ML SYR IVF SCH ×2 (09:00→21:59)
[2018-06-02] MEDS: CHLORTHALIDONE 25 MG TABLET PO SCH (09:18)
[2018-06-02 12:32] VITALS: BP 153/105
[2018-06-02 19:35] VITALS: BP 173/100
[2018-06-02] MEDS ORDERED: LABETALOL 5MG/ML, 20ML IVPush PRN (20:00)
[2018-06-02 21:32] VITALS: BP 183/100
[2018-06-02 22:42] VITALS: BP 152/91
[2018-06-03] MEDS: CEFAZOLIN 2,000 MG in SODIUM CHLORIDE 0.9% 50 ML IVPB SCH ×3 (02:20→17:43)
[2018-06-03 02:55] VITALS: BP 135/87
[2018-06-03 07:52] VITALS: BP 149/97
[2018-06-03] MEDS: ACETAMINOPHEN 325 MG TABLET PO PRN (09:12)
[2018-06-03] MEDS: CHLORTHALIDONE 25 MG TABLET PO SCH (09:12)
[2018-06-03] MEDS: ENOXAPARIN 40 MG/0.4 ML SQ SCH (09:12)
[2018-06-03] MEDS: SODIUM CHLORIDE FLUSH 10ML SYR IVF SCH ×2 (09:52→20:36)
[2018-06-03 13:32] VITALS: BP 139/88
[2018-06-03 19:09] VITALS: BP 140/109
[2018-06-04] MEDS: CEFAZOLIN 2,000 MG in SODIUM CHLORIDE 0.9% 50 ML IVPB SCH ×3 (01:47→17:12)
[2018-06-04 01:52] VITALS: BP 145/79
[2018-06-04 07:09] VITALS: BP 124/80
[2018-06-04] MEDS: ENOXAPARIN 40 MG/0.4 ML SQ SCH (08:00)
[2018-06-04] MEDS: CHLORTHALIDONE 25 MG TABLET PO SCH (08:56)
[2018-06-04] MEDS: SODIUM CHLORIDE FLUSH 10ML SYR IVF SCH ×2 (08:57→19:46)
[2018-06-04 12:41] VITALS: BP 150/77
[2018-06-04 20:15] VITALS: BP 156/95
[2018-06-05] MEDS: CEFAZOLIN 2,000 MG in SODIUM CHLORIDE 0.9% 50 ML IVPB SCH ×3 (01:19→17:35)
[2018-06-05 02:02] VITALS: BP 122/75
[2018-06-05 06:00] LABS: CREATININE 0.94 mg/dL (0.7-1.3)
[2018-06-05 06:47] VITALS: BP 129/76
[2018-06-05] MEDS: ENOXAPARIN 40 MG/0.4 ML SQ SCH (08:00)
[2018-06-05] MEDS: SODIUM CHLORIDE FLUSH 10ML SYR IVF SCH ×2 (08:45→20:50)
[2018-06-05] MEDS: CHLORTHALIDONE 25 MG TABLET PO SCH (08:45)
[2018-06-05 14:59] VITALS: BP 155/93
[2018-06-05 20:00] VITALS: BP 144/92
[2018-06-06] MEDS: CEFAZOLIN 2,000 MG in SODIUM CHLORIDE 0.9% 50 ML IVPB SCH ×3 (01:30→17:36)
[2018-06-06 05:00] VITALS: BP 122/80
[2018-06-06 07:23] VITALS: BP 156/93
[2018-06-06] MEDS: ENOXAPARIN 40 MG/0.4 ML SQ SCH (08:00)
[2018-06-06] MEDS: SODIUM CHLORIDE FLUSH 10ML SYR IVF SCH (09:00)
[2018-06-06 09:34] VITALS: BP 174/96
[2018-06-06] MEDS: CHLORTHALIDONE 25 MG TABLET PO SCH (09:37)
[2018-06-06 13:48] VITALS: BP 187/85
[2018-06-06 14:24] VITALS: BP 139/91
== END 2018-06-06 19:03 | disposition home or self-care (01) | DRG 300 ==
LOC: ED 20:10 → EDIP 20:15 → MERGE 20:15 → 4WST 21:56
PROVIDERS: ADMIT Internal Medicine; ATTEND Internal Medicine
PROC: 02HV33Z Insertion of Infusion Device into Superior Vena Cava, Percutaneous Approach (ICD-10-PCS; principal; 2018-05-27)
PROC: B5181ZA Fluoroscopy of Superior Vena Cava using Low Osmolar Contrast, Guidance (ICD-10-PCS; 2018-05-27)
PROC: B548ZZA Ultrasonography of Superior Vena Cava, Guidance (ICD-10-PCS; 2018-05-27)
DX: I82.812 Embolism and thrombosis of superficial veins of left lower extremity (principal); L03.114 Cellulitis of left upper limb; N17.9 Acute kidney failure, unspecified; I82.432 Acute embolism and thrombosis of left popliteal vein; I10 Essential (primary) hypertension; I16.0 Hypertensive urgency; R74.0 Nonspecific elevation of levels of transaminase and lactic acid dehydrogenase [LDH]; B95.61 Methicillin susceptible Staphylococcus aureus infection as the cause of diseases classified elsewhere; E66.9 Obesity, unspecified; E87.6 Hypokalemia; I44.0 Atrioventricular block, first degree; I48.91 Unspecified atrial fibrillation; I65.21 Occlusion and stenosis of right carotid artery; I83.92 Asymptomatic varicose veins of left lower extremity; I87.8 Other specified disorders of veins; N28.1 Cyst of kidney, acquired; H53.8 Other visual disturbances; Z79.899 Other long term (current) drug therapy; Z82.49 Family history of ischemic heart disease and other diseases of the circulatory system; Z68.33 Body mass index [BMI] 33.0-33.9, adult
CPT/HCPCS: 36415; 36573; 70450; 71045; 71046; 76770; 80048; 80053; 80061; 80069; 81001; 81003; 82040; 82088; 82384; 82533; 82565; 83036; 83735; 83835; 84100; 84145; 84244; 84439; 84443; 84484; 84585; 85025; 85651; 86140; 87040; 87077; 87086; 87186; 87400; 93005; 93306; 93308; 93325; 93880; 93970; 93975; 96374; 99285; G0378; J0690; J0696; J1644; J1885; J3370; C1751; J0295; J0360; J1200; J1940; J2765; J7040